=== PATIENT | female | born 1955 | race Caucasian/White ===

== ENCOUNTER 2018-12-29 05:40 | Day surgery (SDC) | payer BC ==
[~2018-12-29] VITALS: Ht 170.2 cm; Wt 83.9 kg
[~2018-12-29 05:40] MED LIST: ADVIL200 M1 PO; BENADRYL ALLERG25 MG PO; REGLAN10 MG PO
[2018-12-29] MEDS ORDERED: IMATREX (06:13)
[2018-12-29] MEDS ORDERED: SUMATRIPTAN SU100 MG PO (06:14)
--- NOTE | 2018-12-29 07:59 | NUR ---
12/29/18 Karine9 Anisha Jerez 0753 PATIENT ARRIVES TO PACU SLEEPING, OPENS EYES WITH VERBAL STIMULI. RESP EVEN AND UNLABORED, ROOM AIR SATS >95%. 0755 PATIENT PASSING GAS. NEEDS FREQUENT REMINDERS TO TAKE DEEP BREATHS.
--- NOTE | 2018-12-29 10:53 | NUR ---
PT ALERT, ORIENTED AND PLEASANT. ROUTINE SCOPE, LONG TIME SINCE LAST. HER BIGGEST CHALLENGE TODAY IS NOT BEING THE PCG. WE DEBRIEFED REGARDING THIS ISSUE, PT REQUESTED PRAYER, WILL FOLLOW NEEDED
--- NOTE | 2018-12-29 14:25 | OR ---
[facility] [address], [place] [address] Signed DATE OF OPERATION: 12/29/2018 SURGEON: Vivien Baig MD PREOPERATIVE DIAGNOSES: 1. Screening colonoscopy. 2. Family history of colon cancer (father age 70). 3. Prior normal colonoscopy, 2011. POSTOPERATIVE DIAGNOSIS: Normal colon to cecum. PROCEDURE: Total colonoscopy to cecum. ANESTHESIA: Intravenous sedation, fentanyl 100 mcg, Versed 3 mg. INDICATION: This 62-year-old white woman is a patient of Dr. Fiona Regan and is known to have family history of colon cancer in her father at age 70. She is currently asymptomatic. She last underwent colonoscopy in 2011, which was normal. She is admitted to undergo screening colonoscopy. She understands the risks of bleeding, infection, and perforation. FINDINGS: The prep was excellent. Complete colonoscopy was undertaken to the cecum without question. There was no evidence of polyps, diverticular formation, colitis, or cancer. DESCRIPTION OF PROCEDURE: The patient was brought to the endoscopy suite and placed in lateral decubitus position. Given intravenous sedation to the point of slurred speech and nystagmus with full cardiopulmonary monitoring. Digital rectal examination was normal. An Olympus video colonoscope was passed in the rectum and manipulated throughout the colon ultimately intubating the cecum. The ileocecal valve and appendiceal orifice were normal. The scope was withdrawn from that point and examination throughout showed no sign of abnormality, specifically no polyps, diverticular formation, colitis, or cancer. Retroflex view was normal as well. The scope was straightened, withdrawn and removed and the patient was taken to recovery room in good condition. Electronically Signed By: VIVIEN BAIG MD 12/29/18 1425 PATIENT NAME: ARNULFO ROCKWELL OPERATIVE REPORT DATE OF : 57 REPORT #: [id number] PHYSICIAN: VIVIEN BAIG MD PCP: FIONA REGAN MD REPORT IS CONFIDENTIAL AND NOT TO BE RELEASED WITHOUT AUTHORIZATION [facility] [address], [place] [address] Signed CONCLUSION DIAGNOSIS: Normal colon. PLAN: Recommend repeat colonoscopy in 5 years based on family history, sooner if symptoms should develop. She will return to the ongoing care of Dr. Regan, otherwise. MD USHA Dickson/JONAHL /[id number] cc: Fiona Regan MD Copies: FIONA REGAN MD ~ Electronically Signed By: VIVIEN BAIG MD 12/29/18 1425 PATIENT NAME: ARNULFO ROCKWELL REINALDO OPERATIVE REPORT DATE OF : 57 REPORT #: [id number] PHYSICIAN: VIVIEN BAIG MD PCP: FIONA REGAN MD REPORT IS CONFIDENTIAL AND NOT TO BE RELEASED WITHOUT AUTHORIZATION
== END 2018-12-29 09:25 | disposition home or self-care (01) ==
LOC: OPS 05:40 → DS 05:40 → OPS 09:00
PROVIDERS: Surgery
PROC: 0DJD8ZZ Inspection of Lower Intestinal Tract, Via Natural or Artificial Opening Endoscopic (ICD-10-PCS; principal; 2018-12-29 06:45)
DX: Z12.11 Encounter for screening for malignant neoplasm of colon (principal); G43.719 Chronic migraine without aura, intractable, without status migrainosus; Z80.0 Family history of malignant neoplasm of digestive organs; Z98.890 Other specified postprocedural states; Z88.0 Allergy status to penicillin
CPT/HCPCS: 99153; G0500; J2250; J3010; J7120